=== PATIENT | female | born 1960 | race African-American/Black ===

== ENCOUNTER 2016-12-19 11:25 | Emergency (ER) | payer OTHER | END 2016-12-19 12:36 | disposition home or self-care (01) | LOC: ER 11:25 | DX: S63.501A Unspecified sprain of right wrist, initial encounter (principal); S63.91XA Sprain of unspecified part of right wrist and hand, initial encounter; I10 Essential (primary) hypertension; E11.9 Type 2 diabetes mellitus without complications; F41.9 Anxiety disorder, unspecified; F31.9 Bipolar disorder, unspecified; W04.XXXA Fall while being carried or supported by other persons, initial encounter ==

== ENCOUNTER 2017-01-21 20:13 | Emergency (ER) | payer OTHER | END 2017-01-21 20:47 | disposition home or self-care (01) | LOC: ER 20:13 | DX: M25.532 Pain in left wrist (principal); M25.531 Pain in right wrist; F31.9 Bipolar disorder, unspecified; E11.9 Type 2 diabetes mellitus without complications; I10 Essential (primary) hypertension; Z79.84 Long term (current) use of oral hypoglycemic drugs; Z79.899 Other long term (current) drug therapy | CPT/HCPCS: 96372; J1885 ==

== ENCOUNTER 2017-04-16 12:58 | Emergency (ER) | payer OTHER | END 2017-04-16 21:30 | disposition short-term general hospital (02) | LOC: ER 12:58 | DX: F31.5 Bipolar disorder, current episode depressed, severe, with psychotic features (principal); I10 Essential (primary) hypertension; F41.9 Anxiety disorder, unspecified; E11.9 Type 2 diabetes mellitus without complications; G47.30 Sleep apnea, unspecified; F17.200 Nicotine dependence, unspecified, uncomplicated; Z79.84 Long term (current) use of oral hypoglycemic drugs; Z79.899 Other long term (current) drug therapy | CPT/HCPCS: 36415; 80307; G0480 ==